=== PATIENT | female | born 1970 | race Two or more races ===

== ENCOUNTER 2024-12-22 10:50 | Emergency (ER) | payer OTHER ==
[~2024-12-22] VITALS: Ht 170.2 cm; Wt 91.2 kg
[~2024-12-22 10:50] MED LIST: TRAMADOL HCL-AP1 TAB PO
[2024-12-22] MEDS ORDERED: SYNTHROID50 MCG PO (11:14)
[2024-12-22] MEDS ORDERED: ATIVAN2 M1 PO (11:14)
[2024-12-22] MEDS ORDERED: EFEXOR (11:14)
[2024-12-22] MEDS ORDERED: RESTORIL7.5 MG (11:14)
[2024-12-22] MEDS ORDERED: RESTORIL22.5 MG PO (11:15)
[2024-12-22 14:36] LABS: BASO % 1.2 % (0.1-1.2); EOS # 0.50 (0.04-0.54); EOS % 6.0 % (0.7-7.0); LYMPH # 2.51 (1.18-3.74); LYMPH % 30.0 % (19.3-53.1); MEAN PLATELET VOLUME 11.00 fl (9.4-12.4); MONO # 0.33 (0.24-0.82); MONO % 3.9 % (4.7-12.5); NEUT # 4.92 (1.56-6.13); NEUT % 58.8 % (34.0-71.1); RED CELL DISTRIBUTION WIDTH 12.6 % (11.6-14.4)
[2024-12-22 15:01] LABS: URINE APPEARANCE Clear; URINE BILIRRUBIN Negative (NEGATIVE); URINE BLOOD Trace; URINE COLOR Yellow; URINE GLUCOSE Negative (NEGATIVE); URINE KETONE Negative (NEGATIVE); URINE LEUKOCYTE Large; URINE NITRATE Negative; URINE PROTEIN Negative (NEGATIVE); URINE UROBILINOGEN 0.2 E.U./dl
[2024-12-22 15:05] LABS: URINE BACTERIA 1731.6 uL (0.0-1933); URINE EPITHELIAL CELLS 18.3 uL (0.0-38.8); URINE WBC 423.9 uL (0.0-23.2)
[2024-12-22 15:05] LABS: ALT/SGPT 24.0 U/L (12-78); AST/SGOT 20.0 U/L (15-37); BILIRUBIN TOTAL 0.33 mg/dL (0.3-1.2); BUN CREA RATIO 23.0 (7.0-25.0); CREATININE SERUM 0.83 mg/dL (0.55-1.02); GFR 71.64; GLOBULINA 3.8 G/DL (2.4-3.5); GLUCOSE FASTING 107.0 mg/dL (65-100); OSMOLALITY SERUM 288.0 MOSM/KG (275-295)
[2024-12-22 15:12] LABS: COVID-19 AG NEGATIVE (NEGATIVE)
[2024-12-22 15:30] LABS: URINE CAST 0.00 uL (0.0-1.40); URINE RBC 1.0 uL (0.0-20.8)
[2024-12-22 15:31] LABS: TYPE CELLS SQUAMOUS
[2024-12-22] MEDS ORDERED: CEFTRIAXONE SODIUM 1,000 MG VIAL IM STA (16:34)
[2024-12-22] MEDS ORDERED: KETOROLAC TROMETHAMINE 30 MG VIAL IM STA (16:34)
[2024-12-22] MEDS ORDERED: ORPHENADRINE CITRATE 30 MG/ML AMPUL IM STA (16:35)
[2024-12-22] MEDS ORDERED: CEFTRIAXONE SODIUM 1,000 MG VIAL ONE (16:40)
[2024-12-22] MEDS ORDERED: KETOROLAC TROMETHAMINE 30 MG VIAL ONE (16:40)
[2024-12-22] MEDS ORDERED: ORPHENADRINE CITRATE 30 MG/ML AMPUL ONE (16:40)
== END 2024-12-22 17:04 | disposition home or self-care (01) ==
LOC: ER 10:50
PROVIDERS: Preventive Medicine Public Health & General Preventive Medicine
DX: N39.0 Urinary tract infection, site not specified (principal); E03.8 Other specified hypothyroidism; Z20.822 Contact with and (suspected) exposure to COVID-19
CPT/HCPCS: 36415; 96372; 99282; J0696; J1885; J2360

== ENCOUNTER 2024-12-27 13:33 | Emergency (ER) | payer OTHER ==
[~2024-12-27] VITALS: Ht 170.2 cm; Wt 90.7 kg
[~2024-12-27 13:33] MED LIST changes: +ATIVAN2 M1 PO; +EFEXOR; +RESTORIL22.5 MG PO; +RESTORIL7.5 MG; +SYNTHROID50 MCG PO
[2024-12-27] MEDS ORDERED: FAMOtidine 10 MG/ML (4ML VIAL) IV ONE (15:00)
[2024-12-27] MEDS ORDERED: CIPROFLOXACIN IN 5 % DEXTROSE 400 MG/200 ML PIGGYBAG IV ONE ×2 (15:05→15:15)
[2024-12-27] MEDS ORDERED: KETOROLAC TROMETHAMINE 30 MG VIAL ONE (15:05)
[2024-12-27] MEDS ORDERED: FAMOTIDINE/PF 20 MG/2 ML VIAL ONE (15:06)
[2024-12-27] MEDS ORDERED: KETOROLAC TROMETHAMINE 30 MG VIAL IV ONE (15:15)
[2024-12-27 15:43] LABS: BASO % 0.9 % (0.1-1.2); EOS # 0.22 (0.04-0.54); EOS % 3.4 % (0.7-7.0); LYMPH # 2.90 (1.18-3.74); LYMPH % 44.2 % (19.3-53.1); MEAN PLATELET VOLUME 10.90 fl (9.4-12.4); MONO # 0.37 (0.24-0.82); MONO % 5.6 % (4.7-12.5); NEUT # 3.00 (1.56-6.13); NEUT % 45.7 % (34.0-71.1); RED CELL DISTRIBUTION WIDTH 12.6 % (11.6-14.4)
[2024-12-27 16:04] LABS: BUN CREA RATIO 22.0 (7.0-25.0); CREATININE SERUM 0.78 mg/dL (0.55-1.02); GFR 76.96; GLUCOSE FASTING 104.0 mg/dL (65-100); OSMOLALITY SERUM 287.0 MOSM/KG (275-295)
[2024-12-27 16:21] LABS: URINE APPEARANCE Clear; URINE BILIRRUBIN Negative (NEGATIVE); URINE BLOOD Trace; URINE COLOR Yellow; URINE GLUCOSE Negative (NEGATIVE); URINE KETONE Trace (NEGATIVE); URINE LEUKOCYTE Negative; URINE NITRATE Negative; URINE PROTEIN Negative (NEGATIVE); URINE UROBILINOGEN 0.2 E.U./dl
[2024-12-27 16:23] LABS: URINE BACTERIA 4.7 uL (0.0-1933); URINE EPITHELIAL CELLS 5.8 uL (0.0-38.8); URINE RBC 3.8 uL (0.0-20.8); URINE WBC 2.0 uL (0.0-23.2)
[2024-12-27 16:38] LABS: URINE CAST 0.14 uL (0.0-1.40)
[2024-12-27] MEDS ORDERED: PROTONIX20 MG PO (20:22)
[2024-12-27] MEDS ORDERED: PEPCID AC20 MG PO (20:22)
[2024-12-27] MEDS ORDERED: FLUCONAZOLE150 MG PO (20:22)
[2024-12-27] MEDS ORDERED: MONISTAT 324 GM VAG (20:25)
== END 2024-12-27 20:27 | disposition home or self-care (01) ==
LOC: ER 13:33
PROVIDERS: General Practice
DX: N39.0 Urinary tract infection, site not specified (principal); R10.2 Pelvic and perineal pain; R10.11 Right upper quadrant pain; E03.8 Other specified hypothyroidism